=== PATIENT | female | born 1970 | race Caucasian/White ===

== ENCOUNTER 2024-08-22 14:44 | Emergency (ER) | payer MEDICAID ==
[~2024-08-22] VITALS: Ht 149.9 cm; Wt 72.2 kg
[2024-08-22 14:52] VITALS: BP 138/76; TEMP 36.9; O2SAT 99
[2024-08-22 14:59] VITALS: PULSE 94; RESP 20; O2SAT 99
== END 2024-08-22 17:37 | disposition left against medical advice (07) ==
LOC: EDSEX 14:44 → ER 14:58
DX: R10.9 Unspecified abdominal pain (principal); Z98.890 Other specified postprocedural states; Z53.21 Procedure and treatment not carried out due to patient leaving prior to being seen by health care provider